=== PATIENT | male | born 1960 | race African-American/Black ===

== ENCOUNTER 2022-07-03 14:01 | Observation (INO) ==
[2022-07-03] MEDS ORDERED: SODIUM CHLORIDE 0.9% 1,000 ML IV STA (14:13)
[2022-07-03 14:29] LABS: Basophils % 0.4 % (0.0-0.8); Eosinophils % 0.2 % (0.00-10.9); Hematocrit 44.4 VOL% (42.0-52.0); Hemoglobin 15.1 GM/DL (14.0-18.0); Immature Granulocytes % 0.4 %; Immature Granulocytes Absolute 0.02 #; Lymphocytes % 36.3 % (21.2-54.2); Mean Corpuscular Volume 103.5 FL (87-102); Monocytes # 0.7 10*3/uL (0.11-0.8); Monocytes % 12.5 % (1.7-12.7); Neutrophils % 50.2 % (38.7-73.9); Platelet Count 163 T/CUMM (130-400); Red Blood Count 4.29 MC/CUMM (3.8-5.5); Red Cell Distribution Width 12.8 % (9.3-17.3); White Blood Count 5.5 T/CUMM (4-12)
[2022-07-03 14:44] LABS: PT Patient Result 10.8 SECS (10.1-12.1)
[2022-07-03 14:49] LABS: Alanine Aminotransferase 55 U/L (16-61); Albumin 3.2 G/DL (3.4-5.0); Alkaline Phosphatase 55 U/L (45-117); Aspartate Amino Transferase 36 U/L (0-37); Blood Urea Nitrogen 10 MG/DL (7-18); Calcium 9.5 MG/DL (8.5-10.1); Carbon Dioxide 23 MMOL/L (21-32); Chloride 106 MMOL/L (98-107); Glucose 103 MG/DL (74-106); Osmolality,Calculated 275.5 MOS/KG (273-304); Potassium 4.2 MMOL/L (3.5-5.1); Sodium 139 MMOL/L (136-145); Total Protein 7.7 G/DL (6.4-8.2)
[2022-07-03 16:58] LABS: Bilirubin,Urine Negative (Negative); Blood, Urine Negative (Negative); Glucose,Urine (UA) Negative (Negative); Ketones,Urine Negative (Negative); Nitrite,Urine Negative (Negative); Protein,Urine Negative (Negative); Urine Appearance Clear (Clear); Urine Color Yellow (Yellow); Urine pH 6.5 (4.5-8.0)
[2022-07-03 16:59] LABS: RBC,Urine <1 /HPF (0-4)
[2022-07-03 17:11] LABS: Barbiturates Screen,Urine Negative (Negative); Benzodiazepines Screen,Urine Negative (Negative); Cannabinoid Screen,Urine Negative (Negative); Opiate Screen,Urine Negative (Negative); Phencyclidine Screen,Urine Negative (Negative)
[2022-07-03] MEDS ORDERED: ONDANSETRON 4 MG/2 ML VIAL IV PRN (18:25)
[2022-07-03] MEDS ORDERED: SODIUM CHLORIDE 0.45% 1,000 ML IV SCH (18:30)
[2022-07-03] MEDS ORDERED: LORazepam 2 MG/1 ML VIAL IV STA (18:37)
[2022-07-03] MEDS ORDERED: diphenhydrAMINE 50 MG/1 ML VIAL IV STA (18:37)
[2022-07-03] MEDS ORDERED: HALOPERIDOL 5 MG/ML AMP IM STA (18:42)
[2022-07-03] MEDS ORDERED: LORazepam 2 MG/1 ML VIAL IM STA (18:46)
[2022-07-03] MEDS ORDERED: diphenhydrAMINE 50 MG/1 ML VIAL IM STA (18:47)
[2022-07-03] MEDS: ENOXAPARIN 100 MG/ML SYRINGE SUBCUT SCH (23:07)
[2022-07-03] MEDS: NICOTINE 21 MG/24 HR PATCH TRANSDERM SCH (23:08)
[2022-07-03] MEDS: ACETAMINOPHEN 325 MG TABLET PO PRN (23:08)
[2022-07-04] MEDS: ZIPRASIDONE 20 MG/1 ML VIAL IM PRN ×2 (03:13→16:37)
[2022-07-04 05:10] LABS: Basophils % 0.4 % (0.0-0.8); Eosinophils % 0.4 % (0.00-10.9); Hematocrit 39.8 VOL% (42.0-52.0); Hemoglobin 13.5 GM/DL (14.0-18.0); Immature Granulocytes % 0.4 %; Immature Granulocytes Absolute 0.02 #; Lymphocytes # 2.3 10*3/uL (1.4-4.0); Lymphocytes % 41.1 % (21.2-54.2); Mean Corpuscular HGB Conc 33.9 GM/DL (32-36); Mean Corpuscular Volume 102.1 FL (87-102); Monocytes # 0.8 10*3/uL (0.11-0.8); Monocytes % 14.9 % (1.7-12.7); Neutrophils % 42.8 % (38.7-73.9); Platelet Count 152 T/CUMM (130-400); Red Cell Distribution Width 12.9 % (9.3-17.3); White Blood Count 5.5 T/CUMM (4-12)
[2022-07-04 05:38] LABS: Calcium 9.4 MG/DL (8.5-10.1); Osmolality,Calculated 280.1 MOS/KG (273-304); Potassium 3.9 MMOL/L (3.5-5.1); Risk Ratio 2.88; Thyroid Stimulating Hormone 2.84 uIU/ml (0.358-3.74)
[2022-07-04] MEDS: LORazepam 2 MG/1 ML VIAL IV PRN ×2 (08:35→13:54)
[2022-07-04] MEDS: ENOXAPARIN 100 MG/ML SYRINGE SUBCUT SCH ×2 (08:44→20:14)
[2022-07-04] MEDS: NICOTINE 21 MG/24 HR PATCH TRANSDERM SCH (08:45)
[2022-07-04] MEDS ORDERED: SODIUM CHLORIDE 0.9% 1,000 ML IV ONE (08:52)
[2022-07-04] MEDS ORDERED: ZIPRASIDONE 20 MG/1 ML VIAL IM ONE (08:55)
[2022-07-04] MEDS ORDERED: [UNRECOGNIZED DRUG - OTHER] IM SCH (09:00)
[2022-07-04] MEDS ORDERED: RISPERIDONE 50 MG/2 ML IM SCH (09:00)
[2022-07-04] MEDS: DULoxetine 30 MG CAPSULE PO SCH ×2 (09:11→20:14)
[2022-07-04] MEDS: GABAPENTIN 300 MG CAPSULE PO SCH ×2 (09:11→20:11)
[2022-07-04] MEDS: SODIUM CHLORIDE 0.9% 1,000 ML IV SCH (09:28)
[2022-07-04 10:50] LABS: % Iron Saturation 52.9 % (18-50)
[2022-07-04 10:57] LABS: 25 Hydroxy Vitamin D Total 31.3 NG/ML (30-100); Folate 8.55 NG/ML (5.38-24.0)
[2022-07-04] MEDS: hydrALAZINE 20 MG/1 ML VIAL IV PRN (16:34)
[2022-07-04] MEDS: risperiDONE 1 MG TABLET PO SCH (20:11)
[2022-07-04] MEDS: DIVALPROEX ER 250 MG TABLET PO SCH (20:11)
[2022-07-04] MEDS: traZODone 50 MG TABLET PO SCH (20:11)
[2022-07-04] MEDS: BENZTROPINE 1 MG TABLET PO SCH (20:14)
[2022-07-05] MEDS: SODIUM CHLORIDE 0.9% 1,000 ML IV SCH (01:11)
[2022-07-05] MEDS: ZIPRASIDONE 20 MG/1 ML VIAL IM PRN ×2 (04:50→12:55)
[2022-07-05 06:40] LABS: Basophils % 0.5 % (0.0-0.8); Eosinophils % 0.5 % (0.00-10.9); Hematocrit 38.8 VOL% (42.0-52.0); Hemoglobin 13.1 GM/DL (14.0-18.0); Immature Granulocytes % 0.5 %; Immature Granulocytes Absolute 0.03 #; Lymphocytes # 2.6 10*3/uL (1.4-4.0); Lymphocytes % 39.6 % (21.2-54.2); Mean Corpuscular HGB Conc 33.8 GM/DL (32-36); Mean Corpuscular Volume 101.3 FL (87-102); Mean Platelet Volume 11.4 FL (9.6-12.0); Monocytes # 0.8 10*3/uL (0.11-0.8); Monocytes % 12.7 % (1.7-12.7); Neutrophils % 46.2 % (38.7-73.9); Platelet Count 153 T/CUMM (130-400); Red Blood Count 3.83 MC/CUMM (3.8-5.5); Red Cell Distribution Width 12.9 % (9.3-17.3); White Blood Count 6.6 T/CUMM (4-12)
[2022-07-05 06:58] LABS: Calcium 8.9 MG/DL (8.5-10.1); Osmolality,Calculated 281.1 MOS/KG (273-304); Potassium 3.4 MMOL/L (3.5-5.1)
[2022-07-05] MEDS ORDERED: POTASSIUM CHLORIDE 20 MEQ TABLET PO ONE (08:09)
[2022-07-05] MEDS: LORazepam 2 MG/1 ML VIAL IV PRN ×2 (09:35→15:45)
[2022-07-05] MEDS: METOPROLOL TARTRATE 25 MG TABLET PO SCH ×2 (09:37→21:40)
[2022-07-05] MEDS: GABAPENTIN 300 MG CAPSULE PO SCH ×2 (09:37→21:43)
[2022-07-05] MEDS: DULoxetine 30 MG CAPSULE PO SCH ×2 (09:37→21:39)
[2022-07-05] MEDS: ENOXAPARIN 100 MG/ML SYRINGE SUBCUT SCH (09:38)
[2022-07-05] MEDS: NICOTINE 21 MG/24 HR PATCH TRANSDERM SCH (09:38)
[2022-07-05] MEDS: hydrALAZINE 20 MG/1 ML VIAL IV PRN (12:55)
[2022-07-05] MEDS: BENZTROPINE 1 MG TABLET PO SCH (21:38)
[2022-07-05] MEDS: DIVALPROEX ER 250 MG TABLET PO SCH (21:38)
[2022-07-05] MEDS: traZODone 50 MG TABLET PO SCH (21:43)
[2022-07-05] MEDS: risperiDONE 1 MG TABLET PO SCH (21:43)
[2022-07-06 05:18] LABS: Basophils % 0.4 % (0.0-0.8); Eosinophils # 0.1 10*3/uL (0.0-0.87); Eosinophils % 0.7 % (0.00-10.9); Hematocrit 42.1 VOL% (42.0-52.0); Immature Granulocytes % 0.3 %; Immature Granulocytes Absolute 0.02 #; Lymphocytes # 2.6 10*3/uL (1.4-4.0); Lymphocytes % 36.2 % (21.2-54.2); Mean Corpuscular HGB Conc 33.3 GM/DL (32-36); Mean Platelet Volume 12.1 FL (9.6-12.0); Monocytes % 14.1 % (1.7-12.7); Neutrophils % 48.3 % (38.7-73.9); Platelet Count 101 T/CUMM (130-400); Red Blood Count 4.01 MC/CUMM (3.8-5.5); Red Cell Distribution Width 13.1 % (9.3-17.3); White Blood Count 7.1 T/CUMM (4-12)
[2022-07-06 05:33] LABS: Calcium 9.2 MG/DL (8.5-10.1); Osmolality,Calculated 272.7 MOS/KG (273-304); Potassium 3.9 MMOL/L (3.5-5.1)
[2022-07-06] MEDS: GABAPENTIN 300 MG CAPSULE PO SCH ×2 (08:13→21:39)
[2022-07-06] MEDS: METOPROLOL TARTRATE 25 MG TABLET PO SCH ×2 (08:13→21:40)
[2022-07-06] MEDS: DULoxetine 30 MG CAPSULE PO SCH ×2 (08:14→21:40)
[2022-07-06] MEDS: NICOTINE 21 MG/24 HR PATCH TRANSDERM SCH (08:14)
[2022-07-06] MEDS ORDERED: MAGNESIUM SULF RIDER 2 GM/50 ML PREMIX IV ONE (09:00)
[2022-07-06] MEDS: risperiDONE 1 MG TABLET PO SCH (21:38)
[2022-07-06] MEDS: BENZTROPINE 1 MG TABLET PO SCH (21:39)
[2022-07-06] MEDS: DIVALPROEX ER 250 MG TABLET PO SCH (21:39)
[2022-07-06] MEDS: traZODone 50 MG TABLET PO SCH (21:40)
[2022-07-07] MEDS: LORazepam 2 MG/1 ML VIAL IV PRN (04:47)
[2022-07-07] MEDS: ACETAMINOPHEN 325 MG TABLET PO PRN (04:50)
[2022-07-07] MEDS: ZIPRASIDONE 20 MG/1 ML VIAL IM PRN (06:05)
[2022-07-07] MEDS: METOPROLOL TARTRATE 25 MG TABLET PO SCH (09:27)
[2022-07-07] MEDS: GABAPENTIN 300 MG CAPSULE PO SCH (09:27)
[2022-07-07] MEDS: DULoxetine 30 MG CAPSULE PO SCH (09:27)
[2022-07-07] MEDS: NICOTINE 21 MG/24 HR PATCH TRANSDERM SCH (09:28)
[2022-07-07 12:24] VITALS: BP 152/90
== END 2022-07-07 15:10 | disposition home health service (06) ==
LOC: N.EDINP 14:01 → N.ED 14:01 → SUATTDRO 18:24 → N.2W 21:15
PROVIDERS: ADMIT Internal Medicine; ATTEND Internal Medicine